=== PATIENT | male | born 1990 | race Caucasian/White ===

== ENCOUNTER 2019-05-15 18:50 | Emergency (ER) | payer BC ==
[~2019-05-15] VITALS: Ht 180.3 cm; Wt 84.1 kg
[~2019-05-15 18:50] MED LIST: NORCO 325 MG-51 TAB PO
[2019-05-15 19:50] LABS: EOS # 0.5 (0.04-0.40); HEMATOCRIT 43.7 % (42.0-52.0); HEMOGLOBIN 14.7 g/dL (13.5-18.0); LYMPH# 2.4 (1.50-4.00); MEAN CELL VOLUME 89 fl (78-100); MEAN CORPUSCULAR HEMOGLOBIN 30 pg (27-31); MEAN CORPUSCULAR HGB CONC 34 g/dL (33-37); MEAN PLATELET VOLUME 9.9 fl (7.4-10.4); MONO # 0.6 (0.20-0.80); NEU # 6.4 (1.40-6.50); PLATELET COUNT 293 K/mm3 (130-400); RED BLOOD COUNT 4.93 M/mm3 (4.20-5.60); RED CELL DISTRIBUTION WIDTH 12.4 % (11.5-14.5); WHITE BLOOD COUNT 9.9 K/mm3 (4.8-10.8)
[2019-05-15 19:52] LABS: EOS % 5.3 % (0.0-4.0)
[2019-05-15 20:02] LABS: ALBUMIN 4.4 g/dL (3.5-5.0)
[2019-05-15 20:03] LABS: POTASSIUM 4.2 mmol/L (3.5-5.1)
[2019-05-15 20:04] LABS: CALCIUM 9.7 mg/dL (8.3-10.5)
[2019-05-15 20:05] LABS: TOTAL PROTEIN 7.3 g/dL (6.4-8.3)
[2019-05-15 20:07] LABS: TOTAL BILIRUBIN 0.5 mg/dL (0.2-1.2)
[2019-05-15 20:58] VITALS: BP 103/62
== END 2019-05-15 20:59 | disposition home or self-care (01) ==
LOC: ED 18:50
PROVIDERS: Nurse Practitioner Family
DX: R42 Dizziness and giddiness (principal)